=== PATIENT | female | born 1975 | race African-American/Black ===

== ENCOUNTER 2019-04-07 13:01 | Emergency (ER) | payer OTHER ==
[2019-04-07 13:07] VITALS: TEMP 97.9; BMI 58.3
--- NOTE | 2019-04-07 13:18 | PDOC ---
History of Present Illness - General Chief Complaint: Headache Stated Complaint: HYPERTENSION Time Seen by Provider: 04/07/19 13:13 History Source: Patient Exam Limitations: No Limitations - History of Present Illness Initial Comments: 04/07/19 13:23 CHIEF COMPLAINT: Headache, dizziness HISTORY OF PRESENT ILLNESS: This is a 44-year-old female, active smoker, history of morbid obesity and mild intermittent asthma (no hospitalizations) sent from her primary care doctor's office for high blood pressure (190/102), headache, and dizziness. The patient has a right ankle fracture for which she is preparing to have surgery after the holidays. She reports that she went to her primary care doctor for lab work several days ago, and was noted to be hypertensive in the 190s systolic at that time. She reports the blood pressure came down after lying in a quiet dark room. She returned to her primary doctor' s office today for the lab results, and developed headache while she was waiting there. Her blood pressure was again found to be high, so she was referred to the emergency room. Patient reports that her headache is constant, left frontal in location, and dull in character. She reports dizziness and dry mouth. She denies chest pain or shortness of breath. Of note, the patient started Chantix last night and attempt to quit smoking, and attributes some of her symptoms to this. Vital signs on arrival are notable for blood pressure 162/95 and pulse of 98. PCP: Dr. Davenport ([address] [place] [address]) REVIEW OF SYSTEMS: GENERAL/CONSTITUTIONAL: No fever or chills. No weakness. No weight change. HEAD, EYES, EARS, NOSE AND THROAT: No change in vision. No ear pain or discharge. No sore throat. CARDIOVASCULAR: No chest pain or palpitations. RESPIRATORY: No cough, wheezing, or shortness of breath. GASTROINTESTINAL: Nausea and diarrhea yesterday, resolved. GENITOURINARY: No dysuria, frequency, or change in urination. MUSCULOSKELETAL: No joint or muscle swelling or pain. No neck or back pain. SKIN: No rash or easy bruising. NEUROLOGIC: See HPI. PSYCHIATRIC: No depression or anxiety. ENDOCRINE: No increased thirst. No abnormal weight change. HEMATOLOGIC/LYMPHATIC: No anemia, easy bleeding, or history of blood clots. ALLERGIC/IMMUNOLOGIC: No hives or skin allergy. No latex allergy. PHYSICAL EXAM: GENERAL: The patient is awake, alert, and fully oriented, in no acute distress. HEAD: Normal with no signs of trauma. ENT: Pupils equal, round and reactive to light, extraocular movements intact, sclera anicteric, conjunctiva clear. Neck supple. LUNGS: Clear to auscultation bilaterally. Normal excursion. No respiratory distress or use of accessory muscles. CV: RRR, S1/S2, no MRG. Cap refill < 2 sec. ABDOMEN: Soft, obese, non-tender. EXTREMITIES: Normal range of motion. Trace LE edema (baseline per pt). NEUROLOGICAL: Normal speech, normal gait. CN II-XII grossly intact. NIHSS equals 0. Patient did report dizziness every time she was asked to close her eyes for a portion of the exam and then reopen them. PSYCH: Normal mood, normal affect. SKIN: Warm, dry, normal turgor, no rashes or lesions noted. 04/07/19 14:21 Past History - Past Medical History Allergies/Adverse Reactions: Allergies Allergy/AdvReac Type Severity Reaction Status Date / Time No Known Allergies Allergy Verified 07/16/14 22:18 Home Medications: Ambulatory Orders Acetaminophen W/ Codeine #3 [Tylenol # 3 -] 1 tab PO Q6H #20 tablet 07/17/14 Cyclobenzaprine HCl [Flexeril -] 10 mg PO TID #21 tablet 07/17/14 Ibuprofen [Motrin -] 600 mg PO QID #28 tablet 07/17/14 Hydrochlorothiazide 25 mg PO DAILY #10 tablet 04/07/19 Asthma: Yes CVA: No COPD: No - Immunization History TDAP Vaccination: No Immunization Up to Date: No - Psycho Social/Smoking Cessation Hx Smoking Status: Yes Smoking History: Current every day smoker Have you smoked in the past 12 months: No Number of Cigarettes Smoked Daily: 5 Information on smoking cessation initiated: Yes *Physical Exam - Vital Signs Last Vital Signs Temp Pulse Resp BP Pulse Ox 97.9 F 98 H 19 162/95 100 04/07/19 13:04 04/07/19 13:04 04/07/19 13:04 04/07/19 13:04 04/07/19 13:04 Heart Score/ECG Review - History History: Slightly suspicious - Electrocardiogram EKG: Normal - Age Age: </= 45 - Risk Factors Risk Factors Heart Score: Yes Hx Hypertension, Yes Smoking History, Yes Hx Obesity Based on the list above the patient has:: >/=3 risk factors or Hx atherosclerotic disease - Troponin Troponin: </= normal limit - Score Heart Score - Total: 2 - ECG Intrepretation Rhythm: Regular Rhythm Comment:: 04/07/19 14:24 Sinus tachycardia 91 bpm - [place]: Normal ED Treatment Course - LABORATORY CBC & Chemistry Diagram: 04/07/19 13:52 04/07/19 13:52 Medical Decision Making - Medical Decision Making 04/07/19 13:53 A/P: 44-year-old female with new HTN and headache. No focal neurologic deficits identified on exam other than episodes of dizziness. -EKG -Cardiac labs, UA, urine hcg -CT brain given new onset of headache/dizziness and severe range HTN -Tylenol 975mg PO for headache -Start HCTZ given multiple documented high BP measurements 04/07/19 14:37 Labs reviewed and notable for AST/ALT 160/157 04/07/19 14:54 EKG: Sinus tachycardia, no ST or T wave changes CT brain: no acute intracranial process. Cr WNL, no proteinuria Trop neg 04/07/19 15:54 Patient reevaluated: Headache and dizziness improved. Repeat blood pressure is 130/90. PCP called but unavailable, message left with nurse. Will start hydrochlorothiazide. Patient has PCP appointment [id number], but was advised to call for an earlier appointment so that she can have lab work and repeat blood pressure check in 1 week. Discharge - Discharge Information Problems reviewed: Yes Clinical Impression/Diagnosis: Hypertension Condition: Improved Disposition: HOME - Admission No - Additional Discharge Information Prescriptions: Hydrochlorothiazide 25 mg PO DAILY #10 tablet - Follow up/Referral Referrals: Susan Davenport MD [Primary Care Provider] - 1 week - Patient Discharge Instructions Patient Printed Discharge Instructions: Essential Hypertension Additional Instructions: Start hydrochlorothiazide. Follow-up with in 1 week for lab work and blood pressure check. Return here for any new or concerning symptoms, especially worsening headache, dizziness, weakness, change in speech, chest pain. - Post Discharge Activity
[2019-04-07 14:03] LABS: BASO % 0.6 % (0-2.0); EOS % 1.9 % (0-4.5); HEMATOCRIT 38.4 % (32.4-45.2); HEMOGLOBIN 12.7 GM/dL (10.7-15.3); LYMPH % 19.2 % (8-40); MCH 28.8 pg (25.7-33.7); MCHC 33.1 g/dl (32.0-36.0); MEAN CELL VOLUME 86.9 fl (80-96); MEAN PLT VOLUME 8.5 fl (7.5-11.1); MONO % 6.4 % (3.8-10.2); NEUT % 71.9 % (42.8-82.8); PLATELET COUNT 290 K/MM3 (134-434); RBC 4.41 M/mm3 (3.60-5.2); RDW 14.7 % (11.6-15.6); WHITE BLOOD COUNT 10.1 K/mm3 (4.0-10.0)
[2019-04-07 14:17] LABS: INR 1.26 (0.83-1.09); PROTHROMBIN TIME (PATIENT) 14.9 SEC (9.7-13.0)
[2019-04-07 14:24] LABS: PH,URINE 5.5 (5.0-8.0); URINE APPEARANCE CLEAR; URINE BILIRUBIN NEGATIVE (NEGATIVE); URINE COLOR YELLOW; URINE GLUCOSE (UA) NEGATIVE (NEGATIVE); URINE KETONE NEGATIVE (NEGATIVE); URINE LEUK ESTERASE NEGATIVE (NEGATIVE); URINE NITRITE NEGATIVE (NEGATIVE); URINE PROTEIN NEGATIVE (NEGATIVE); URINE UROBILINOGEN 0.2 mg/dL (0.2-1.0)
[2019-04-07] MEDS ORDERED: ACETAMINOPHEN 500 MG TABLET (FP) PO ONE (14:29)
[2019-04-07] MEDS ORDERED: HYDROCHLOROTHIAZIDE 25 MG TABLET (FP) PO ONE (14:29)
[2019-04-07 14:31] LABS: ALBUMIN 3.2 g/dl (3.4-5.0); ALK PHOS 116 U/L (45-117); ANION GAP 4 MMOL/L (8-16); BILIRUBIN,TOTAL 0.2 mg/dL (0.2-1); BLOOD UREA NITROGEN 7.3 mg/dL (7-18); CHLORIDE 103 mmol/L (98-107); CO2 28 mmol/L (21-32); CREATININE 0.7 mg/dL (0.55-1.3); GLUCOSE,RANDOM 125 mg/dL (74-106); POTASSIUM 4.3 mmol/L (3.5-5.1); SGOT/AST 160 U/L (15-37); SGPT/ALT 157 U/L (13-61); SODIUM 135 mmol/L (136-145); TOT PROT 7.8 g/dl (6.4-8.2)
--- NOTE | 2019-04-07 14:45 | EKG ---
Test Reason : Blood Pressure : / mmHG Vent. Rate : 091 BPM Atrial Rate : 091 BPM P-R Int : 176 ms QRS Dur : 076 ms QT Int : 362 ms P-R-T Axes : 060 062 053 degrees QTc Int : 445 ms NORMAL SINUS RHYTHM NORMAL ECG WHEN COMPARED WITH ECG OF 23-NOV-2003 16:43, NO SIGNIFICANT CHANGE WAS FOUND Confirmed by MARY BETH PEREZ MD ([id number]) on 04/07/2019 2:44:56 PM Referred By: Confirmed By:MARY BETH PEREZ MD
[2019-04-07] MEDS ORDERED: MECLIZINE HCL 25 MG TABLET (FP) PO ONE (14:57)
[2019-04-07] MEDS ORDERED: MECLIZINE HCL 25 MG TABLET (FP) ONE (15:00)
[2019-04-07] MEDS ORDERED: ACETAMINOPHEN 325 MG TABLET (FP) ONE (15:00)
[2019-04-07] MEDS ORDERED: HYDROCHLOROTHIAZIDE 25 MG TABLET (FP) ONE (15:01)
[2019-04-07 15:51] VITALS: BP 130/90; PULSE 92
== END 2019-04-07 15:55 | disposition home or self-care (01) ==
LOC: JER 13:01
DX: I10 Essential (primary) hypertension (principal); E66.01 Morbid (severe) obesity due to excess calories; Z68.43 Body mass index [BMI] 50.0-59.9, adult; F17.210 Nicotine dependence, cigarettes, uncomplicated
CPT/HCPCS: 36415; 70450-TC; 80053; 81003; 84484; 84703; 85025; 85610; 93005; 93010; 99283-25

== ENCOUNTER 2021-12-08 15:00 | Emergency (ER) | payer OTHER ==
[2021-12-08 15:09] VITALS: BP 115/76; PULSE 105; TEMP 98.3; BMI 50.1
[2021-12-08] MEDS ORDERED: ACETAMINOPHEN 325 MG TABLET (FP) PO ONE (16:10)
[2021-12-08] MEDS ORDERED: KETOROLAC TROMETHAMINE 30 MG/1 ML VIAL IM ONE (16:10)
[2021-12-08] MEDS ORDERED: KETOROLAC TROMETHAMINE 30 MG/1 ML VIAL ONE (16:14)
[2021-12-08] MEDS ORDERED: ACETAMINOPHEN 325 MG TABLET (FP) ONE (16:15)
== END 2021-12-08 18:41 | disposition home or self-care (01) ==
LOC: JER 15:00 → JERFT 15:00
PROC: 3E0233Z Introduction of Anti-inflammatory into Muscle, Percutaneous Approach (ICD-10-PCS; principal; 2021-12-08)
DX: M79.671 Pain in right foot (principal)
CPT/HCPCS: 73610-TC-RT-FY; 73630-TC-RT-FY; 96372; 99284-25

== ENCOUNTER 2024-07-14 07:18 | Day surgery (SDC) | payer OTHER ==
[2024-07-13 11:46] VITALS: BMI 47.2
[2024-07-14 14:59] VITALS: BP 111/63; PULSE 88; RESP 16; TEMP 98.6
[2024-07-14] MEDS ORDERED: ACETAMINOPHEN 500 MG TABLET (FP) PO PRN (17:00)
== END 2024-07-14 13:50 | disposition home or self-care (01) ==
LOC: JASU-SURG 07:18
PROVIDERS: ATTEND Pain Medicine Pain Medicine
PROC: 3E0R3BZ Introduction of Anesthetic Agent into Spinal Canal, Percutaneous Approach (ICD-10-PCS; 2024-07-14)
PROC: 3E0R33Z Introduction of Anti-inflammatory into Spinal Canal, Percutaneous Approach (ICD-10-PCS; principal; 2024-07-14 12:35)
DX: M54.16 Radiculopathy, lumbar region (principal); M48.061 Spinal stenosis, lumbar region without neurogenic claudication
CPT/HCPCS: 76000-TC-FY; 81025

== ENCOUNTER 2024-08-11 05:56 | Day surgery (SDC) | payer OTHER ==
[2024-08-08 10:03] VITALS: BMI 47.2
[2024-08-11] MEDS ORDERED: LIDOCAINE HCL/PF 1% SDV 5ML VIAL ONE (07:58)
[2024-08-11] MEDS ORDERED: BUPIVACAINE HCL/PF 0.75% 10 ML VIAL ONE (07:58)
[2024-08-11 13:45] VITALS: BP 113/75; PULSE 91; RESP 18; TEMP 97.5
== END 2024-08-11 14:33 | disposition home or self-care (01) ==
LOC: JASU-SURG 05:56
PROVIDERS: ATTEND Pain Medicine Pain Medicine
DX: Z53.8 Procedure and treatment not carried out for other reasons (principal)

== ENCOUNTER 2024-11-03 05:44 | Day surgery (SDC) | payer OTHER ==
[2024-11-03] MEDS ORDERED: ACETAMINOPHEN 500 MG TABLET (FP) PO PRN (08:51)
[2024-11-03] MEDS ORDERED: DEXAMETHASONE SOD PHOSPHATE 10 MG/1 ML VIAL ONE (10:55)
[2024-11-03] MEDS: LIDOCAINE HCL 1% PRESERVATIVE FREE - 30ML VIAL IJ ONE (11:38)
[2024-11-03] MEDS: LIDOCAINE HCL/PF 2% SDV 5ML VIAL INF ONE ×2 (11:46)
[2024-11-03] MEDS: BUPIVACAINE HCL/PF 0.75% 10 ML VIAL NR ONE ×2 (11:54)
[2024-11-03] MEDS: DEXAMETHASONE SOD PHOSPHATE 10 MG/1 ML VIAL IM ONE ×2 (11:54)
[2024-11-03 12:12] VITALS: BP 130/72; PULSE 79; RESP 16; TEMP 98.4
== END 2024-11-03 12:45 | disposition home or self-care (01) ==
LOC: JASU-SURG 05:44
PROVIDERS: ATTEND Pain Medicine Pain Medicine
PROC: 015B3ZZ Destruction of Lumbar Nerve, Percutaneous Approach (ICD-10-PCS; principal; 2024-11-03 11:15)
DX: M47.816 Spondylosis without myelopathy or radiculopathy, lumbar region (principal)
CPT/HCPCS: 76000-TC-FY; 81025; J1100

== ENCOUNTER 2024-12-09 06:09 | Day surgery (SDC) | payer OTHER ==
[2024-12-06 16:51] VITALS: BMI 47.2
[~2024-12-09 06:09] MED LIST: ACETAMINOPHEN 500 MG TABLET (FP) PO PRN
[2024-12-09 09:36] VITALS: TEMP 97.2
[2024-12-09 10:57] VITALS: BP 127/66; PULSE 79; RESP 18
== END 2024-12-09 11:25 | disposition home or self-care (01) ==
LOC: JASU-SURG 06:09
PROVIDERS: ATTEND Pain Medicine Pain Medicine
PROC: 3E0T3BZ Introduction of Anesthetic Agent into Peripheral Nerves and Plexi, Percutaneous Approach (ICD-10-PCS; principal; 2024-12-09 10:24)
PROC: 3E0T33Z Introduction of Anti-inflammatory into Peripheral Nerves and Plexi, Percutaneous Approach (ICD-10-PCS; 2024-12-09 10:24)
DX: M47.816 Spondylosis without myelopathy or radiculopathy, lumbar region (principal)
CPT/HCPCS: 76000-TC-FY; 81025

== ENCOUNTER 2025-01-11 11:21 | Inpatient (IN) | payer OTHER ==
[2025-01-11] MEDS ORDERED: methylPREDNISolone NA SUCC 125 MG/2 ML VIAL ONE (12:06)
[2025-01-11] MEDS ORDERED: ALBUTEROL SO4 2.5/IPRATROPIUM 0.5 INH SOL 3 ML VIAL.NEB. NEB ONE (12:06)
[2025-01-11] MEDS: methylPREDNISolone NA SUCC 125 MG/2 ML VIAL IVPUSH ONE (12:09)
[2025-01-11] MEDS: ALBUTEROL SO4 2.5/IPRATROPIUM 0.5 INH SOL 3 ML VIAL.NEB. NEB ONE (12:10)
[2025-01-11 12:48] LABS: ABSOLUTE IMMATURE GRANULOCYTES 0.03 x10^3/uL (0.0-0.031); BASOPHILS # 0.05 x10^3/uL (0.01-0.08); EOSINOPHIL % 3.8 % (0.7-5.8); EOSINOPHILS # 0.44 x10^3/uL (0.04-0.36); MCHC 33.1 g/dl (32.2-35.5); MEAN CELL VOLUME 94.7 fl (79.4-94.8); MEAN PLT VOLUME 10.0 fl (9.4-12.3); MONOCYTE # 0.62 x10^3/uL (0.24-0.86); MONOCYTE % 5.4 % (4.7-12.5); RDW 13.3 % (12.2-17.1)
[2025-01-11 13:24] LABS: GLUCOSE,RANDOM 78 mg/dL (74-106); TOT PROT 7.0 g/dl (6.4-8.2)
[2025-01-11 13:25] LABS: CO2 26 mmol/L (21-32)
[2025-01-11 13:27] LABS: ALK PHOS 86 U/L (40-150)
[2025-01-11 13:29] LABS: SGOT/AST 65 U/L (5-34); SGPT/ALT 59 U/L (0-55)
[2025-01-11 13:30] LABS: CREATININE 0.76 mg/dL (0.55-1.3)
[2025-01-11 13:41] LABS: HCV DIAGNOSTIC IN-HOUSE W/RFLX NON-REACTIVE (NONREACTIVE)
[2025-01-11 13:42] LABS: HIV INTERPRETATION NEGATIVE (NEGATIVE)
[2025-01-11] MEDS ORDERED: MAGNESIUM SULFATE IN WATER 2 GM/50 ML IVPB IVPB ONE (14:02)
[2025-01-11] MEDS ORDERED: ALBUTEROL SO4 0.083% IH SOL 2.5 MG/3 ML VIAL.NEB. NEB ONE (14:02)
[2025-01-11] MEDS: MAGNESIUM SULF 50% (8.12 MEQ/2 ML-1 GM VIAL) IVPB ONE (14:04)
[2025-01-11] MEDS: ALBUTEROL SO4 0.083% IH SOL 2.5 MG/3 ML VIAL.NEB. NEB ONE (14:04)
[2025-01-11] MEDS ORDERED: FUROSEMIDE 40 MG/4 ML INJECTABLE VIAL ONE (15:19)
[2025-01-11] MEDS ORDERED: AZITHROMYCIN IVPB 500 MG/250 ML BAG IVPB ONE (15:19)
[2025-01-11] MEDS: AZITHROMYCIN IVPB 500 MG in DEXTROSE 5%-WATER - 250 ML IVPB ONE (15:22)
[2025-01-11] MEDS: FUROSEMIDE 40 MG/4 ML INJECTABLE VIAL IVPUSH ONE (15:22)
[2025-01-11 20:49] LABS: N-TERMINAL BNP 126.4 pg/mL (0-299.9)
[2025-01-11] MEDS: ALBUTEROL SO4 2.5/IPRATROPIUM 0.5 INH SOL 3 ML VIAL.NEB. NEB SCH (21:28)
[2025-01-11 22:34] VITALS: BMI 47.3
[2025-01-11] MEDS: MAGNESIUM OXIDE 400 MG TABLET (FP) PO SCH (22:47)
[2025-01-11] MEDS: hydrOXYzine PAMOATE 25 MG CAPSULE (FP) PO SCH (22:48)
[2025-01-12 06:44] LABS: MCHC 32.8 g/dl (32.2-35.5); MEAN CELL VOLUME 94.6 fl (79.4-94.8); MEAN PLT VOLUME 10.0 fl (9.4-12.3); RDW 13.3 % (12.2-17.1)
[2025-01-12 07:04] LABS: GLUCOSE,RANDOM 123.0 mg/dL (74-106); TOT PROT 7.3 g/dl (6.4-8.2)
[2025-01-12 07:05] LABS: CO2 26.0 mmol/L (21-32)
[2025-01-12 07:07] LABS: ALK PHOS 81.0 U/L (40-150)
[2025-01-12 07:09] LABS: SGOT/AST 54.0 U/L (5-34); SGPT/ALT 65.0 U/L (0-55)
[2025-01-12 07:10] LABS: CREATININE 0.68 mg/dL (0.55-1.3)
[2025-01-12] MEDS: hydrOXYzine PAMOATE 50 MG CAPSULE (FP) PO SCH (07:24)
[2025-01-12] MEDS: LORATADINE 10 MG TABLET PO SCH (09:59)
[2025-01-12] MEDS: predniSONE 20 MG TABLET (UD) PO SCH (09:59)
[2025-01-12] MEDS: FERROUS SO4 325 MG TABLET (FP) PO SCH (09:59)
[2025-01-12] MEDS: VALSARTAN 80 MG TABLET PO SCH (09:59)
[2025-01-12] MEDS ORDERED: HYDROCHLOROTHIAZIDE 12.5 MG CAPSULE (FP) PO SCH (10:00)
[2025-01-12] MEDS ORDERED: PATIENT'S OWN MEDICATION (NON-FORMULARY) (Folic Acid [Folic Acid] 0.8 MG Tablet) PO SCH (10:00)
[2025-01-12] MEDS: FUROSEMIDE 40 MG/4 ML INJECTABLE VIAL IVPUSH ONE (10:00)
[2025-01-12] MEDS ORDERED: PATIENT'S OWN MEDICATION (NON-FORMULARY) (Valsartan/Hydrochlorothiazide [Valsartan-Hctz 80 PO SCH (10:00)
[2025-01-12] MEDS ORDERED: CELECOXIB 100 MG CAPSULE PO SCH (10:00)
[2025-01-12] MEDS: ENOXAPARIN NA (PORCINE) 40 MG/0.4 ML DISP.SYRIN SQ SCH (10:02)
[2025-01-12] MEDS ORDERED: guaiFENesin 200 MG/10 ML 10 ML UNIT-DOSE CUPS PO PRN (11:08)
[2025-01-12] MEDS ORDERED: INSULIN ASPART SLIDING SCALE (NOVOLOG) 1 VIAL SQ SCH (11:25)
[2025-01-12] MEDS ORDERED: ALBUTEROL SO4 0.083% IH SOL 2.5 MG/3 ML VIAL.NEB. NEB PRN (11:42)
[2025-01-12 11:54] LABS: IRON SERUM 28.0 ug/dL (50-175)
[2025-01-12] MEDS: BUDESONIDE/FORMETEROL FUMARATE 160/4.5 mcg INHALER IH SCH (12:34)
[2025-01-12] MEDS: guaiFENesin 600 MG TABLET.ER (FP) PO SCH (12:34)
[2025-01-12] MEDS: methylPREDNISolone NA SUCC 40 MG/1 ML VIAL IVPUSH SCH (18:22)
[2025-01-12] MEDS: ACETAMINOPHEN 1000 MG/100 ML BAG IVPB PRN (20:54)
[2025-01-12] MEDS: MONTELUKAST NA 10 MG TABLET PO SCH (21:36)
[2025-01-13] MEDS: IBUPROFEN 400 MG TABLET (FP) PO ONE ×2 (02:55→13:32)
[2025-01-13 06:47] LABS: MCHC 32.2 g/dl (32.2-35.5); MEAN CELL VOLUME 96.5 fl (79.4-94.8); MEAN PLT VOLUME 10.4 fl (9.4-12.3); RDW 13.3 % (12.2-17.1)
[2025-01-13 07:05] LABS: GLUCOSE,RANDOM 124.0 mg/dL (74-106); TOT PROT 7.3 g/dl (6.4-8.2)
[2025-01-13 07:06] LABS: CO2 27.0 mmol/L (21-32)
[2025-01-13 07:08] LABS: ALK PHOS 75.0 U/L (40-150)
[2025-01-13 07:10] LABS: SGOT/AST 46.0 U/L (5-34); SGPT/ALT 68.0 U/L (0-55)
[2025-01-13 07:11] LABS: CREATININE 0.71 mg/dL (0.55-1.3)
[2025-01-13] MEDS: metFORMIN HCL 500 MG TABLET (FP) PO SCH (19:01)
[2025-01-13] MEDS: INSULIN ASPART SLIDING SCALE (NOVOLOG) 1 VIAL SQ SCH (21:13)
[2025-01-13] MEDS ORDERED: INSULIN ASPART SLIDING SCALE (NOVOLOG) 1 VIAL SQ SCH (22:00)
[2025-01-14 06:52] LABS: ABSOLUTE IMMATURE GRANULOCYTES 0.18 x10^3/uL (0.0-0.031); BASOPHILS # 0.02 x10^3/uL (0.01-0.08); EOSINOPHIL % 0.0 % (0.7-5.8); EOSINOPHILS # 0.00 x10^3/uL (0.04-0.36); MCHC 31.8 g/dl (32.2-35.5); MEAN CELL VOLUME 97.0 fl (79.4-94.8); MEAN PLT VOLUME 10.3 fl (9.4-12.3); MONOCYTE # 0.93 x10^3/uL (0.24-0.86); MONOCYTE % 5.1 % (4.7-12.5); RDW 13.5 % (12.2-17.1)
[2025-01-14 06:55] LABS: GLUCOSE,RANDOM 173.0 mg/dL (74-106); TOT PROT 7.3 g/dl (6.4-8.2)
[2025-01-14 06:56] LABS: CO2 26.0 mmol/L (21-32)
[2025-01-14 06:58] LABS: ALK PHOS 71.0 U/L (40-150)
[2025-01-14 07:00] LABS: SGPT/ALT 54.0 U/L (0-55)
[2025-01-14 07:01] LABS: CREATININE 0.77 mg/dL (0.55-1.3); SGOT/AST 31.0 U/L (5-34)
[2025-01-14] MEDS: IBUPROFEN 400 MG TABLET (FP) PO ONE (21:26)
[2025-01-15 07:12] LABS: ABSOLUTE IMMATURE GRANULOCYTES 0.25 x10^3/uL (0.0-0.031); BASOPHILS # 0.03 x10^3/uL (0.01-0.08); EOSINOPHIL % 0.0 % (0.7-5.8); EOSINOPHILS # 0.00 x10^3/uL (0.04-0.36); MCHC 32.6 g/dl (32.2-35.5); MEAN CELL VOLUME 95.6 fl (79.4-94.8); MEAN PLT VOLUME 10.1 fl (9.4-12.3); MONOCYTE # 0.90 x10^3/uL (0.24-0.86); MONOCYTE % 5.3 % (4.7-12.5); RDW 13.4 % (12.2-17.1)
[2025-01-15 08:23] LABS: GLUCOSE,RANDOM 182.0 mg/dL (74-106); TOT PROT 7.3 g/dl (6.4-8.2)
[2025-01-15 08:24] LABS: CO2 25.0 mmol/L (21-32)
[2025-01-15 08:26] LABS: ALK PHOS 67.0 U/L (40-150)
[2025-01-15 08:28] LABS: SGPT/ALT 53.0 U/L (0-55)
[2025-01-15 08:29] LABS: CREATININE 0.75 mg/dL (0.55-1.3); SGOT/AST 28.0 U/L (5-34)
[2025-01-15] MEDS: FUROSEMIDE 40 MG/4 ML INJECTABLE VIAL IVPUSH ONE (11:58)
[2025-01-15] MEDS: ALBUTEROL SO4 2.5/IPRATROPIUM 0.5 INH SOL 3 ML VIAL.NEB. NEB SCH (15:38)
[2025-01-15] MEDS ORDERED: ALBUTEROL SO4 0.083% IH SOL 2.5 MG/3 ML VIAL.NEB. NEB PRN (15:38)
[2025-01-15] MEDS: metFORMIN HCL 500 MG TABLET (FP) PO SCH (17:11)
[2025-01-15] MEDS: INSULIN ASPART SLIDING SCALE (NOVOLOG) 1 VIAL SQ SCH (17:12)
[2025-01-15] MEDS: MELATONIN 5 MG TABLETS PO PRN (22:20)
[2025-01-15] MEDS: hydrOXYzine PAMOATE 25 MG CAPSULE (FP) PO SCH (22:20)
[2025-01-15] MEDS: guaiFENesin 600 MG TABLET.ER (FP) PO SCH (22:20)
[2025-01-15] MEDS: MONTELUKAST NA 10 MG TABLET PO SCH (22:21)
[2025-01-15] MEDS: BUDESONIDE/FORMETEROL FUMARATE 160/4.5 mcg INHALER IH SCH (22:27)
[2025-01-16 09:39] LABS: MCHC 32.3 g/dl (32.2-35.5); MEAN CELL VOLUME 95.3 fl (79.4-94.8); MEAN PLT VOLUME 10.3 fl (9.4-12.3); RDW 13.1 % (12.2-17.1)
[2025-01-16] MEDS ORDERED: methylPREDNISolone NA SUCC 40 MG/1 ML VIAL IVPUSH SCH (10:00)
[2025-01-16 10:22] LABS: TOT PROT 7.3 g/dl (6.4-8.2)
[2025-01-16 10:23] LABS: CO2 23.0 mmol/L (21-32)
[2025-01-16] MEDS: LORATADINE 10 MG TABLET PO SCH (10:23)
[2025-01-16] MEDS: VALSARTAN 80 MG TABLET PO SCH (10:23)
[2025-01-16] MEDS: FERROUS SO4 325 MG TABLET (FP) PO SCH (10:23)
[2025-01-16 10:25] LABS: ALK PHOS 76.0 U/L (40-150)
[2025-01-16 10:28] LABS: CREATININE 0.75 mg/dL (0.55-1.3); SGOT/AST 88.0 U/L (5-34)
[2025-01-16] MEDS: ENOXAPARIN NA (PORCINE) 40 MG/0.4 ML DISP.SYRIN SQ SCH (10:28)
[2025-01-16 10:57] LABS: GLUCOSE,RANDOM 212.0 mg/dL (74-106)
[2025-01-16 11:07] VITALS: BP 142/83; RESP 19; TEMP 97.3
[2025-01-16 11:12] VITALS: PULSE 114
[2025-01-16] MEDS: methylPREDNISolone NA SUCC 40 MG/1 ML VIAL IVPUSH SCH (11:48)
[2025-01-16 12:17] LABS: SGPT/ALT 99.0 U/L (0-55)
== END 2025-01-16 13:09 | disposition home or self-care (01) | DRG 141 ==
LOC: JER 11:21 → JERBED 15:42 → J4W 20:14 → J5S 01-15 15:15
PROVIDERS: ADMIT Internal Medicine; ATTEND Student in an Organized Health Care Education/Training Program
DX: J45.41 Moderate persistent asthma with (acute) exacerbation (principal); I10 Essential (primary) hypertension; E11.9 Type 2 diabetes mellitus without complications; G25.81 Restless legs syndrome; G89.29 Other chronic pain; F17.210 Nicotine dependence, cigarettes, uncomplicated; R74.01 Elevation of levels of liver transaminase levels; R79.89 Other specified abnormal findings of blood chemistry; E66.813 Obesity, class 3; Z68.42 Body mass index [BMI] 45.0-49.9, adult
CPT/HCPCS: 36415; 71045-TC-FY; 80053; 82728; 82962; 83036; 83540; 83550; 83735; 83880; 84100; 84439; 84443; 84703; 85025; 85027; 86803; 87389; 87637-QW; 93005; 93010; 93306-TC; 94150; 94640; 94761; 97116-GP; 97162-GP; 99285-25